=== PATIENT | female | born 1945 | race Caucasian/White ===

== ENCOUNTER 2018-02-11 16:47 | Emergency (ER) | payer MEDICARE ==
[~2018-02-11] VITALS: Ht 157.5 cm; Wt 81.8 kg
[~2018-02-11 16:47] MED LIST: ALEVE220 M2 OR; ALEVE220 MG OR; ALPRAZOLAM0.25 MG PO; ASPIRIN LOW DOS81 M2 PO; AVAPRO300 MG OR; AVAPRO300 MG PO; BAYER LOW81 MG OR; BAYER LOW81 MG PO; CALTRATE 600 OR; CALTRATE 602 PO; DICLOXACILL500 MG PO; DRY E-NATUR400 UNIT OR; E 400 BLEND400 UNIT PO; FIORINA1 PO; FLEXERIL10 MG PO; FOSAMAX70 MG OR; HYDROCHLORO25 MG/TAB PO; HYDROCHLOROT25 MG PO; HYDROCHLOROT50 MG PO; LEVOTHYROXIN100 MC1 PO; LEVOTHYROXIN100 MCG PO; LIPITOR20 MG PO; LIPITOR40 MG OR; LIPITOR40 MG PO; NORVASC10 M1 PO; NORVASC5 MG OR; NORVASC5 MG PO; PAROXETINE25 MG PO; PAXIL CR25 MG OR; PENICILLIN V P500 MG OR; PERCOCET 5/325M1 TAB PO; SYNTHROID150 MCG OR; SYNTHROID175 MCG; SYNTHROID175 MCG PO; VICODIN ES1 TAB PO; VICODIN1 TAB PO
[2018-02-11 17:18] LABS: HEMOGLOBIN 14.4 g/dl (12.0-16.0); IMMATURE GRANULOCYTES 0.3 % (0.0-1.0); MEAN CELL VOLUME 91.5 fL CALC (80.0-100.0); MEAN CORPUSCULAR HGB 30.6 pG CALC (26.0-32.0); MEAN CORPUSCULAR HGB CONC 33.5 g/L CALC (32.0-36.0); NEUT# 2.95 thou/uL (2.00-7.15); RED BLOOD COUNT 4.7 mill/uL (4.20-5.60)
[2018-02-11 17:34] LABS: INFLUENZA A POSITIVE (NONE DETECT); INFLUENZA B NONE DETECTED (NONE DETECT)
[2018-02-11 17:40] LABS: ALBUMIN 4.3 g/dL (3.2-5.0); ANION GAP 19 (6-22 (CALC)); BILIRUBIN, TOTAL 0.4 mg/dL (0.0-1.4); BUN 5 mg/dL (8-23); BUN/CREATININE RATIO 7 (12-20 (CALC)); CARBON DIOXIDE 25 mmol/l (22-30); CHLORIDE 99 mmol/l (95-108); CREATININE 0.7 mg/dL (0.5-1.0); GFR > 60 ML/MIN (>=60 (CALC)); GFR FOR AFR.AMER. > 60 ML/MIN (>=60 (CALC)); LIPASE 57 u/l (23-300); POTASSIUM 3.5 mmol/l (3.5-5.1); SGPT/ALT 202 u/l (11-66); SODIUM 140 mmol/l (137-146)
[2018-02-11 17:45] LABS: ALKALINE PHOSPHATASE 199 u/l (38-126); SGOT/AST 170 u/l (9-36); TOTAL PROTEIN 7.6 g/dL (6.3-8.2)
[2018-02-11] MEDS ORDERED: TAM75CAP PO (18:19)
[2018-02-11 18:37] LABS: URINE BILIRUBIN - DIPSTICK NEGATIVE (NEGATIVE); URINE BLOOD DIPSTICK NEGATIVE (NEGATIVE); URINE COLOR YELLOW; URINE GLUCOSE - DIPSTICK NEGATIVE (NEGATIVE); URINE KETONE NEGATIVE (NEGATIVE); URINE LEUK ESTERASE NEGATIVE (NEGATIVE); URINE NITRITE - DIPSTICK NEGATIVE (Negative); URINE PROTEIN - DIPSTICK NEGATIVE (NEG-TRACE); URINE UROBILINOGEN - DIPSTICK 0.2 E.U./dL (0.2)
[2018-02-11 18:41] LABS: URINE CLARITY CLEAR
[2018-02-11] MEDS ORDERED: ZPAK PO (18:43)
[2018-02-11 19:00] VITALS: BP 150/77
== END 2018-02-11 19:08 | disposition home or self-care (01) ==
LOC: ED 16:47
PROVIDERS: Family Medicine
DX: J10.1 Influenza due to other identified influenza virus with other respiratory manifestations (principal); R42 Dizziness and giddiness; R11.0 Nausea; R51 Headache; R05 Cough; I10 Essential (primary) hypertension

== ENCOUNTER 2018-02-19 08:43 | Inpatient (IN) | payer MEDICARE ==
[~2018-02-19] VITALS: Ht 157.5 cm; Wt 80.9 kg
[~2018-02-19 08:43] MED LIST changes: -LIPITOR40 MG PO; +TAM75CAP PO; +ZPAK PO
[2018-02-19 09:18] LABS: HEMATOCRIT 43.4 % (37.0-47.0); HEMOGLOBIN 15.2 g/dl (12.0-16.0); IMMATURE GRANULOCYTES 0.3 % (0.0-1.0); MEAN CORPUSCULAR HGB 30.8 pG CALC (26.0-32.0); NEUT# 4.81 thou/uL (2.00-7.15); RED BLOOD COUNT 4.93 mill/uL (4.20-5.60); RED CELL DISTRI WIDTH 11.9 % (11.5-15.5)
[2018-02-19 09:43] LABS: ALBUMIN 4.4 g/dL (3.2-5.0); ALKALINE PHOSPHATASE 142 u/l (38-126); ANION GAP 20 (6-22 (CALC)); BILIRUBIN, TOTAL 0.7 mg/dL (0.0-1.4); BUN 9 mg/dL (8-23); BUN/CREATININE RATIO 12 (12-20 (CALC)); CARBON DIOXIDE 22 mmol/l (22-30); CHLORIDE 102 mmol/l (95-108); CREATININE 0.8 mg/dL (0.5-1.0); GFR > 60 ML/MIN (>=60 (CALC)); GFR FOR AFR.AMER. > 60 ML/MIN (>=60 (CALC)); LIPASE 332 u/l (23-300); POTASSIUM 3.5 mmol/l (3.5-5.1); SGPT/ALT 48 u/l (11-66); SODIUM 141 mmol/l (137-146); TOTAL PROTEIN 7.5 g/dL (6.3-8.2)
[2018-02-19 09:46] LABS: SGOT/AST 29 u/l (9-36)
[2018-02-19 10:54] VITALS: BP 152/67
[2018-02-19 11:07] LABS: URINE BILIRUBIN - DIPSTICK NEGATIVE (NEGATIVE); URINE BLOOD DIPSTICK NEGATIVE (NEGATIVE); URINE COLOR YELLOW; URINE GLUCOSE - DIPSTICK NEGATIVE (NEGATIVE); URINE KETONE NEGATIVE (NEGATIVE); URINE LEUK ESTERASE NEGATIVE (NEGATIVE); URINE NITRITE - DIPSTICK NEGATIVE (Negative); URINE PH 7.5 (4.5-8.0); URINE PROTEIN - DIPSTICK NEGATIVE (NEG-TRACE); URINE SPECIFIC GRAVITY <=1.005; URINE UROBILINOGEN - DIPSTICK 0.2 E.U./dL (0.2)
[2018-02-19 11:21] LABS: URINE CLARITY CLEAR
[2018-02-19 15:27] VITALS: BP 133/61
[2018-02-19 18:33] VITALS: BP 136/70
[2018-02-19 23:46] VITALS: BP 145/70
[2018-02-20 04:00] VITALS: BP 158/83
[2018-02-20 07:14] VITALS: BP 140/68
[2018-02-20 07:23] LABS: HEMATOCRIT 38.7 % (37.0-47.0); IMMATURE GRANULOCYTES 0.3 % (0.0-1.0); MEAN CELL VOLUME 90.6 fL CALC (80.0-100.0); MEAN CORPUSCULAR HGB 30.4 pG CALC (26.0-32.0); MEAN CORPUSCULAR HGB CONC 33.6 g/L CALC (32.0-36.0); NEUT# 4.28 thou/uL (2.00-7.15); RED BLOOD COUNT 4.27 mill/uL (4.20-5.60); RED CELL DISTRI WIDTH 12.2 % (11.5-15.5)
[2018-02-20 07:32] LABS: CHOLESTEROL HDL RATIO 4.8 (<4.4 (CALC))
[2018-02-20 07:33] LABS: ALKALINE PHOSPHATASE 112 u/l (38-126); ANION GAP 15 (6-22 (CALC)); BILIRUBIN, TOTAL 0.5 mg/dL (0.0-1.4); BUN 2 mg/dL (8-23); BUN/CREATININE RATIO 4 (12-20 (CALC)); CARBON DIOXIDE 25 mmol/l (22-30); CHLORIDE 108 mmol/l (95-108); CREATININE 0.7 mg/dL (0.5-1.0); GFR > 60 ML/MIN (>=60 (CALC)); GFR FOR AFR.AMER. > 60 ML/MIN (>=60 (CALC)); POTASSIUM 3.1 mmol/l (3.5-5.1); SGOT/AST 20 u/l (9-36); SGPT/ALT 39 u/l (11-66); SODIUM 145 mmol/l (137-146)
[2018-02-20 07:34] LABS: ALBUMIN 3.4 g/dL (3.2-5.0)
[2018-02-20 08:04] LABS: TSH, 3RD GENERATION 0.96 uIU/mL (0.47 - 4.68)
[2018-02-20 11:21] VITALS: BP 141/76
[2018-02-20 16:00] VITALS: BP 144/74
[2018-02-20 19:05] VITALS: BP 145/76
[2018-02-21] VITALS: BP 155/86
[2018-02-21 04:29] VITALS: BP 140/88
[2018-02-21 05:55] LABS: HEMATOCRIT 41.5 % (37.0-47.0); HEMOGLOBIN 13.9 g/dl (12.0-16.0); IMMATURE GRANULOCYTES 0.3 % (0.0-1.0); MEAN CELL VOLUME 90.6 fL CALC (80.0-100.0); MEAN CORPUSCULAR HGB 30.3 pG CALC (26.0-32.0); MEAN CORPUSCULAR HGB CONC 33.5 g/L CALC (32.0-36.0); NEUT# 3.66 thou/uL (2.00-7.15); RED BLOOD COUNT 4.58 mill/uL (4.20-5.60)
[2018-02-21 06:15] LABS: ALBUMIN 3.4 g/dL (3.2-5.0); ALKALINE PHOSPHATASE 110 u/l (38-126); BILIRUBIN, TOTAL 0.4 mg/dL (0.0-1.4); BUN 3 mg/dL (8-23); BUN/CREATININE RATIO 5 (12-20 (CALC)); CARBON DIOXIDE 27 mmol/l (22-30); CHLORIDE 106 mmol/l (95-108); CREATININE 0.7 mg/dL (0.5-1.0); GFR > 60 ML/MIN (>=60 (CALC)); GFR FOR AFR.AMER. > 60 ML/MIN (>=60 (CALC)); SGOT/AST 20 u/l (9-36); SGPT/ALT 43 u/l (11-66); SODIUM 144 mmol/l (137-146); TOTAL PROTEIN 5.8 g/dL (6.3-8.2)
[2018-02-21 06:26] LABS: ANION GAP 15 (6-22 (CALC))
[2018-02-21 09:09] VITALS: BP 122/56
[2018-02-21 11:00] VITALS: BP 145/78
[2018-02-21 16:23] VITALS: BP 152/87
[2018-02-21 19:08] VITALS: BP 131/81
[2018-02-22 00:22] VITALS: BP 154/99
[2018-02-22 05:00] VITALS: BP 179/87
[2018-02-22 05:54] VITALS: BP 170/83
[2018-02-22 08:09] VITALS: BP 140/70
== END 2018-02-22 10:12 | disposition home or self-care (01) | DRG 866 ==
LOC: ED 08:43 → ED-I 09:44 → ED 10:18 → MS2 10:19
PROVIDERS: Family Medicine; ADMIT Internal Medicine Geriatric Medicine; ATTEND Internal Medicine Geriatric Medicine
DX: B34.9 Viral infection, unspecified (principal); F11.20 Opioid dependence, uncomplicated; E86.0 Dehydration; E03.9 Hypothyroidism, unspecified; M19.90 Unspecified osteoarthritis, unspecified site; I10 Essential (primary) hypertension; K21.9 Gastro-esophageal reflux disease without esophagitis; M85.80 Other specified disorders of bone density and structure, unspecified site; F41.1 Generalized anxiety disorder; M62.830 Muscle spasm of back; G89.29 Other chronic pain; M54.9 Dorsalgia, unspecified; R10.11 Right upper quadrant pain